=== PATIENT | male | born 1955 | race Caucasian/White ===

== ENCOUNTER → 2019-06-17 | Outpatient (CLI) | payer OTHER | LOC: CAT 07:39 | DX: Z13.6 Encounter for screening for cardiovascular disorders (principal); E78.00 Pure hypercholesterolemia, unspecified; I25.10 Atherosclerotic heart disease of native coronary artery without angina pectoris ==

== ENCOUNTER 2019-07-30 19:30 | Emergency (ER) | payer OTHER ==
[~2019-07-30] VITALS: Ht 180.3 cm; Wt 90.7 kg
[2019-07-30 20:33] LABS: BASOPHILS 0.4 % (0.0-2.0); EOSINOPHILS 0.1 % (0.0-3.0); HEMATOCRIT 41.9 % (42.0-52.0); HEMOGLOBIN 14.7 gm/dL (14.0-18.0); LYMPHOCYTES 5.4 % (24.0-44.0); MCH 31.7 pg (26.0-34.0); MCV 90.8 fL (80.0-100.0); MONOCYTES 6.2 % (1.0-8.0); PLATELET COUNT 175 thou/uL (150-400); POLYS 87.9 % (36.0-66.0); RBC 4.62 mil/uL (4.50-6.00); RDW 12.8 % (10.5-14.5); WBC 15.9 thou/uL (4.0-11.0)
[2019-07-30 20:36] LABS: CALCIUM 8.9 mg/dL (8.5-10.1); CREATININE 1.1 mg/dL (0.7-1.3); POTASSIUM 3.5 mmol/L (3.5-5.1)
[2019-07-30 21:43] LABS: URINE BILIRUBIN NEGATIVE (Negative); URINE BLOOD NEGATIVE (Negative); URINE CLARITY CLEAR; URINE COLOR YELLOW; URINE GLUCOSE-RANDOM* NEGATIVE (Negative); URINE KETONES NEGATIVE (Negative); URINE LEUKOCYTES-REFLEX NEGATIVE (Negative); URINE NITRITE-REFLEX NEGATIVE (Negative); URINE PROTEIN (DIPSTICK) NEGATIVE (Negative); URINE UROBILINOGEN 0.2 E.U./dl (0.2-1.0)
[2019-07-30 22:40] VITALS: BP 133/83
[2019-07-30] MEDS ORDERED: TESSALON PERLE100 MG PO (22:54)
== END 2019-07-30 22:40 | disposition home or self-care (01) ==
LOC: ER 19:30
PROVIDERS: Emergency Medicine
DX: B34.9 Viral infection, unspecified (principal); Z20.828 Contact with and (suspected) exposure to other viral communicable diseases; M54.2 Cervicalgia; M54.9 Dorsalgia, unspecified

== ENCOUNTER → 2019-08-04 | Outpatient (CLI) | payer OTHER ==
[~2019-08-04] MED LIST: ROXICODONE5 M2 PO; TESSALON PERLE100 MG PO
[2019-08-04 14:28] LABS: HEMATOCRIT 42.6 % (42.0-52.0); HEMOGLOBIN 14.7 gm/dL (14.0-18.0); MCH 31.2 pg (26.0-34.0); MCHC 34.5 g/dL (28.0-37.0); MCV 90.6 fL (80.0-100.0); RBC 4.71 mil/uL (4.50-6.00); RDW 12.6 % (10.5-14.5); WBC 11.8 thou/uL (4.0-11.0)
[2019-08-04 14:47] LABS: ALBUMIN 3.3 g/dL (3.4-5.0); CALCIUM 9.4 mg/dL (8.5-10.1); CREATININE 0.9 mg/dL (0.7-1.3); POTASSIUM 3.3 mmol/L (3.5-5.1); TOTAL BILIRUBIN 0.7 mg/dL (<0.1-1.0); TOTAL PROTEIN 8.2 g/dL (6.4-8.2)
== END ==
LOC: CAT 13:36
PROVIDERS: Family Medicine
DX: R90.82 White matter disease, unspecified (principal)

== ENCOUNTER 2019-08-05 17:02 | Emergency (ER) | payer OTHER ==
[~2019-08-05] VITALS: Ht 180.3 cm; Wt 90.7 kg
[~2019-08-05 17:02] MED LIST changes: -ROXICODONE5 M2 PO
[2019-08-05 17:29] LABS: ABSOLUTE NEUTROPHILS 10.2 thou/uL (1.4-8.2); BASOPHILS 0.7 % (0.0-2.0); EOSINOPHILS 0.5 % (0.0-3.0); HEMATOCRIT 41.2 % (42.0-52.0); HEMOGLOBIN 14.2 gm/dL (14.0-18.0); LYMPHOCYTES 8.3 % (24.0-44.0); MCH 31.1 pg (26.0-34.0); MCHC 34.5 g/dL (28.0-37.0); MCV 90.2 fL (80.0-100.0); MONOCYTES 7.6 % (1.0-8.0); PLATELET COUNT 327 thou/uL (150-400); POLYS 82.9 % (36.0-66.0); RBC 4.57 mil/uL (4.50-6.00); RDW 12.4 % (10.5-14.5); WBC 12.3 thou/uL (4.0-11.0)
[2019-08-05 17:38] LABS: ANION GAP 7 mmol/L (7-16); BUN 12 mg/dL (7-18); CALCIUM 9.2 mg/dL (8.5-10.1); CHLORIDE 99 mmol/L (98-107); CO2 30 mmol/L (21-32); CREATININE 0.9 mg/dL (0.7-1.3); GLUCOSE 115 mg/dL (74-106); POTASSIUM 3.1 mmol/L (3.5-5.1); SODIUM 136 mmol/L (136-145)
[2019-08-05 17:43] LABS: INR 1.1; PROTIME 10.9 Seconds (9.3-11.4)
[2019-08-05 17:48] LABS: ALBUMIN 3.1 g/dL (3.4-5.0); SGOT 23 U/L (15-37); SGPT 24 U/L (30-65); TOTAL BILIRUBIN 0.5 mg/dL (<0.1-1.0); TROPONIN-I <0.06 ng/mL (<0.06)
[2019-08-05 19:42] LABS: CSF GLUCOSE 67 mg/dL (40-70)
[2019-08-05 19:54] LABS: CSF COLOR COLORLESS; VOLUME 4 ml
[2019-08-05 19:55] LABS: CSF CLARITY CLEAR
[2019-08-05 20:00] LABS: CSF RBC 1 /mm3; CSF WBC 6 /mm3 (0-10)
[2019-08-05 21:08] LABS: URINE BILIRUBIN NEGATIVE (Negative); URINE BLOOD NEGATIVE (Negative); URINE CLARITY CLEAR; URINE COLOR YELLOW; URINE GLUCOSE-RANDOM* NEGATIVE (Negative); URINE KETONES NEGATIVE (Negative); URINE LEUKOCYTES-REFLEX NEGATIVE (Negative); URINE NITRITE-REFLEX NEGATIVE (Negative); URINE PROTEIN (DIPSTICK) NEGATIVE (Negative); URINE UROBILINOGEN 0.2 E.U./dl (0.2-1.0)
[2019-08-05] MEDS ORDERED: ROXICODONE5 M2 PO (21:50)
[2019-08-05 22:35] VITALS: BP 94/51
[2019-08-07 07:03] LABS: HSV PCR SOURCE CSF
--- NOTE | 2019-08-07 13:02 | EKG ---
[facility] [address] [place] [address] ELECTROCARDIOGRAM REPORT Name: TAB ROJO [id number] Admission: 08/05/19 Attend Phys: Discharge: 08/05/19 Date of : 57 Report #: [id number] THIS REPORT FOR: cc: Robert Acuña MD, Neal A. MD Couchonnal, Luis F. MD ~ THIS REPORT FOR: //name// [facility] ED Test Date: 2019-08-05 Test Time: 18:36:23 Pat Name: TAB ROJO Department: Room: Gender: Television Reporter: [facility] : 1955 Requested By: Magdalene Phillips Order Number: [id number] MD: Cristobal Horton Measurements Intervals [place] Rate: 88 P: 41 CO: 139 QRS: -3 QRSD: 92 T: 16 QT: 352 QTc: 426 Interpretive Statements Sinus rhythm No previous ECG available for comparison Electronically Signed On 08-07-2019 13:01:02 CDT by Cristobal Horton [email or web address] <ELECTRONICALLY SIGNED> By: Cristobal Horton MD 08/07/19 1301 35 35 Cristobal Horton MD /SARA
[2019-08-09 13:08] LABS: HSV 1 DNA Negative (Negative); HSV 2 DNA Negative (Negative)
== END 2019-08-05 22:36 | disposition home or self-care (01) ==
LOC: ER 17:02
PROVIDERS: Student in an Organized Health Care Education/Training Program
DX: R51 Headache (principal); R50.9 Fever, unspecified; R53.83 Other fatigue; R53.1 Weakness; Z20.818 Contact with and (suspected) exposure to other bacterial communicable diseases; Z85.46 Personal history of malignant neoplasm of prostate; Z79.899 Other long term (current) drug therapy